=== PATIENT | male | born 1960 | race Caucasian/White ===

== ENCOUNTER 2016-09-24 16:16 | Emergency (ER) | payer BC ==
[2016-09-24 16:21] VITALS: TEMP 98
[2016-09-24] MEDS ORDERED: SODIUM CHLORIDE 0.9% 1,000 ML IV ONE (16:38)
[2016-09-24] MEDS ORDERED: ONDANSETRON 4 MG/2 ML VIAL IVP STA (16:38)
[2016-09-24] MEDS ORDERED: LORazepam 2 MG/ML SYRINGE IV STA (16:38)
--- NOTE | 2016-09-24 16:41 | ED ---
General Adult HPI - General Chief complaint: Nausea/Vomiting/Diarrhea Stated complaint: Alcohol withdraw Time Seen by Provider: 09/24/16 16:28 Source: patient Mode of arrival: ambulatory Limitations: no limitations - History of Present Illness Initial comments: There is a 56-year-old male with a history of alcohol abuse who presents emergency department for nausea, vomiting, and generalized shaking. The patient states that he is a long-time drinker and drinks approximately 1 pint of liquor per day. His last drink was last night around 8 PM he states he wants to quit drinking and is looking entered checking into rehab however he has vomited multiple times today and is very shaky. He feels that he needs help with quitting his drinking. He denies abdominal pain. No history of withdrawal seizures or DTs. He denies any history of hospitalizations. No other complaints. - Related Data Home Medications Medication Instructions Recorded Confirmed Aspirin EC [Ecotrin] 325 mg PO DAILY 09/24/16 09/24/16 amLODIPine BESYLATE/BENAZEPRIL 1 cap PO BID 09/24/16 09/24/16 [amLODIPine BESYLATE/BENAZEPRIL 5-20 mg] Previous Rx's Medication Instructions Recorded Ondansetron Odt [Zofran Odt] 4 mg PO Q8HR PRN #10 tab 09/24/16 chlordiazePOXIDE HCl [Librium] 25 mg PO TID PRN #30 capsule 09/24/16 Allergies Allergy/AdvReac Type Severity Reaction Status Date / Time No Known Allergies Allergy Verified 09/24/16 16:58 Review of Systems ROS Statement: Those systems with pertinent positive or pertinent negative responses have been documented in the HPI. ROS Other: All systems not noted in ROS Statement are negative. Past Medical History Past Medical History: Cancer, Hypertension Additional Past Medical History / Comment(s): Chronic Alcohol Abuse; Skin Ca History of Any Multi-Drug Resistant Organisms: None Reported Additional Past Surgical History / Comment(s): Skin cancer removal from ear Past Psychological History: Depression Smoking Status: Never smoker Past Alcohol Use History: Abuse, Daily Past Drug Use History: None Reported General Exam - General Exam Comments Initial Comments: Constitutional: Awake alert Appears comfortable Head: Normocephalic atraumatic Eyes: no conjunctival injection No scleral icterus EOMI Neck: No JVD Supple Heart: Tachycardia normal S1-S2 no murmurs Lungs: Clear to auscultation bilaterally No wheezing No rales Abdomen: Soft nondistended nontender Extremities: Non edematous DP pulses intact Radial pulses intact Neuro: A&Ox3 No focal neurologic deficits, there is generalized tremors Psych: Appears anxious Limitations: no limitations Course Vital Signs 09/24/16 16:18 Temperature 98.0 F Pulse Rate 96 Respiratory 18 Rate Blood Pressure 162/96 O2 Sat by Pulse 98 Oximetry Medical Decision Making - Medical Decision Making Is a 56-year-old male presents emergency department for a call withdrawal. Labwork was reviewed and unremarkable. The patient feels improved after fluids , Ativan, and Zofran. Going to send him home with Librium and Zofran that he can use as needed. He is to follow-up with the rehab center next week. He can return if he has worsening symptoms. All questions were answered. - Lab Data Result diagrams: 09/24/16 16:50 09/24/16 16:50 Lab Results 09/24/16 09/24/16 09/24/16 Range/Units 16:50 16:50 16:50 WBC 8.0 (3.8-10.6) k/uL RBC 4.77 (4.30-5.90) m/uL Hgb 15.2 (13.0-17.5) gm/dL Hct 45.1 (39.0-53.0) % MCV 94.4 (80.0-100.0) fL MCH 31.8 (25.0-35.0) pg MCHC 33.7 (31.0-37.0) g/dL RDW 13.1 (11.5-15.5) % Plt Count 255 (150-450) k/uL Neutrophils % 79 % Lymphocytes % 13 % Monocytes % 6 % Eosinophils % 1 % Basophils % 0 % Neutrophils # 6.4 (1.3-7.7) k/uL Lymphocytes # 1.0 (1.0-4.8) k/uL Monocytes # 0.5 (0-1.0) k/uL Eosinophils # 0.1 (0-0.7) k/uL Basophils # 0.0 (0-0.2) k/uL PT 10.7 (9.0-12.0) sec INR 1.1 (<1.1) APTT 24.7 (22.0-30.0) sec Sodium 139 (137-145) mmol/L Potassium 3.5 (3.5-5.1) mmol/L Chloride 96 L (98-107) mmol/L Carbon Dioxide 26 (22-30) mmol/L Anion Gap 17 mmol/L BUN 15 (9-20) mg/dL Creatinine 0.80 (0.66-1.25) mg/dL Est GFR (MDRD) Af Amer >60 (>60 ml/min/1.73 sqM) Est GFR (MDRD) Non-Af >60 (>60 ml/min/1.73 sqM) Glucose 112 H (74-99) mg/dL Calcium 9.8 (8.4-10.2) mg/dL Total Bilirubin 2.9 H (0.2-1.3) mg/dL AST 61 H (17-59) U/L ALT 52 (21-72) U/L Alkaline Phosphatase 82 (38-126) U/L Total Protein 8.6 H (6.3-8.2) g/dL Albumin 4.6 (3.5-5.0) g/dL Disposition Clinical Impression: Alcohol withdrawal Disposition: HOME SELF-CARE Instructions: Alcohol Withdrawal (ED) Prescriptions: Ondansetron Odt [Zofran Odt] 4 mg PO Q8HR PRN #10 tab PRN Reason: Vomiting chlordiazePOXIDE HCl [Librium] 25 mg PO TID PRN #30 capsule PRN Reason: Withdrawal Referrals: Chucky Bradley MD [Primary Care Provider] - 1-2 days
[2016-09-24 17:07] LABS: Basophils % (A) 0 %; CH 32.6; CHCM 34.6; Eosinophils # (A) 0.1 k/uL (0-0.7); Eosinophils % (A) 1 %; HCT 45.1 % (39.0-53.0); HDW 2.14; HGB 15.2 gm/dL (13.0-17.5); Luc # (Auto) 0.07; Luc % (Auto) 1; Lymphocytes % (A) 13 %; MCH 31.8 pg (25.0-35.0); MCHC 33.7 g/dL (31.0-37.0); MCV 94.4 fL (80.0-100.0); Mean Platelet Volume 6.9; Monocytes # (A) 0.5 k/uL (0-1.0); Monocytes % (A) 6 %; Neutrophils # (A) 6.4 k/uL (1.3-7.7); Neutrophils % (A) 79 %; RBC 4.77 m/uL (4.30-5.90); RDW 13.1 % (11.5-15.5); WBC (Perox) 7.97
[2016-09-24 17:15] LABS: ALT 52 U/L (21-72); AST 61 U/L (17-59); Alkaline Phosphatase 82 U/L (38-126); Anion Gap 17 mmol/L; Blood Urea Nitrogen 15 mg/dL (9-20); Calcium 9.8 mg/dL (8.4-10.2); Carbon Dioxide 26 mmol/L (22-30); Chloride 96 mmol/L (98-107); Glucose 112 mg/dL (74-99); Non-African American GFR(MDRD) >60 (>60 ml/min/1.73 sqM); Potassium 3.5 mmol/L (3.5-5.1); Sodium 139 mmol/L (137-145); Total Bilirubin 2.9 mg/dL (0.2-1.3); Total Protein 8.6 g/dL (6.3-8.2)
[2016-09-24 17:17] LABS: INR 1.1 (<1.1); Partial Thromboplastin Time 24.7 sec (22.0-30.0); Prothrombin Time 10.7 sec (9.0-12.0)
[2016-09-24 18:24] VITALS: BP 160/97; PULSE 93; RESP 20
== END 2016-09-24 18:29 | disposition home or self-care (01) ==
LOC: EC 16:16
DX: F10.239 Alcohol dependence with withdrawal, unspecified (principal); I10 Essential (primary) hypertension; Z79.82 Long term (current) use of aspirin; Z79.899 Other long term (current) drug therapy
CPT/HCPCS: 36415; 80053; 85025; 85610; 85730; 99284; 96374; 96375; 96361 ×2; J2060; J2405

== ENCOUNTER → 2018-10-19 | Outpatient (CLI) | payer BC ==
--- NOTE | 2018-10-19 13:32 | ECHOS ---
STRESS ECHOCARDIOGRAM DATE OF SERVICE: 10/19/2018 INDICATIONS: Shortness of breath. MEDICATIONS: Amlodipine, aspirin, Vitamin D. BASELINE HEART RATE: 70 BASELINE BLOOD PRESSURE: 109/79 MAXIMUM HEART RATE: 145 MAXIMUM BLOOD PRESSURE: 197/59 85% MPHR: 138 100% MPHR: 162 METS: 7.1 MAXIMUM STAGE REACHED: II TOTAL EXERCISE TIME: 6 minutes CLINICAL INFORMATION: Baseline rhythm is sinus mechanism, rate of 70, normal axis and intervals, normal electrocardiogram. Baseline blood pressure 109/79 mmHg. The patient exercised on Сергей protocol for 6 minutes reaching peak rate 145 beats per minute which is equal to 89% maximum predicted heart rate. Peak blood pressure 197/59 mmHg. Test was terminated secondary to fatigue. There was no chest pain. Electrocardiograph monitoring revealed no evidence of diagnostic ischemic ST deviation. Baseline echocardiogram revealed normal wall thickening and motion. At peak exercise, there was normal wall motion augmentation with no hypokinesis or dyskinesis. CONCLUSION: 1. Decreased exercise tolerance with normal electrocardiograph response to exercise. 2. Normal stress echocardiogram with no evidence of stress induced ischemia. MMODL / IJN: [id number] /
== END | disposition home or self-care (01) ==
LOC: RADNMMAIN 10:17
PROVIDERS: ATTEND Family Medicine
DX: R06.02 Shortness of breath (principal)
CPT/HCPCS: 93351

== ENCOUNTER 2022-07-19 12:18 | Emergency (ER) | payer BC ==
[2022-07-19] MEDS ORDERED: KETOROLAC 15 MG/ML 1 ML VIAL IM STA (12:56)
--- NOTE | 2022-07-19 13:01 | ED ---
General Adult HPI - General Chief complaint: Extremity Injury, Upper Stated complaint: lt hand injury Time Seen by Provider: 07/19/22 12:44 Source: patient, RN notes reviewed, old records reviewed Mode of arrival: ambulatory Limitations: no limitations - History of Present Illness Initial comments: Patient is a 62-year-old male with past medical history remarkable for prior alcohol abuse and withdrawal sober for 5 years, hypertension, who presents emergency Department complaining of left arm pain. Patient states that at 1 AM last night, he was attempting to break a car window to help someone get out of the car. He for struck it with his left forearm on the outside aspect and he states it began to hurt there. Did not hit it again but was able to break the window open with an object. States that he went home with this morning when he woke up he was having some pain at the site of the distal left forearm and difficulty moving his wrist. Presents today for further evaluation over concern for injury. No new laceration. No other injuries. Denies any sensory deficits or weakness in the hand. Reduced range of motion at the left wrist secondary to pain. No left elbow or shoulder pain. Presents for further evaluation at this time. - Related Data Home Medications Medication Instructions Recorded Confirmed Aspirin EC [Ecotrin] 325 mg PO DAILY 09/24/16 09/24/16 amLODIPine BESYLATE/BENAZEPRIL 1 cap PO BID 09/24/16 09/24/16 [amLODIPine BESYLATE/BENAZEPRIL 5-20 mg] Previous Rx's Medication Instructions Recorded Ondansetron Odt [Zofran Odt] 4 mg PO Q8HR PRN #10 tab 09/24/16 chlordiazePOXIDE HCl [Librium] 25 mg PO TID PRN #30 capsule 09/24/16 Allergies Allergy/AdvReac Type Severity Reaction Status Date / Time No Known Allergies Allergy Verified 07/19/22 12:41 Review of Systems ROS Statement: Those systems with pertinent positive or pertinent negative responses have been documented in the HPI. Review of Systems: CONST: Denies fever EYES: Denies blurry vision ENT: Denies nasal congestion C/V: Denies Chest pain RESP: Denies shortness of breath GI: Denies abdominal pain : Denies dysuria SKIN: Denies rash. MSK: Endorses left arm, wrist pain. NEURO: Denies headache ROS Other: All systems not noted in ROS Statement are negative. Past Medical History Past Medical History: Cancer, Hypertension Additional Past Medical History / Comment(s): Chronic Alcohol Abuse; Skin Ca History of Any Multi-Drug Resistant Organisms: None Reported Additional Past Surgical History / Comment(s): Skin cancer removal from ear Past Psychological History: Depression Smoking Status: Never smoker Past Alcohol Use History: Abuse, Daily Past Drug Use History: None Reported General Exam - General Exam Comments Initial Comments: General: Appears in no acute distress. HEAD: Normal with no signs of head trauma. EYES: EOMI ENT: Hearing grossly intact RESPIRATORY: No respiratory distress C/V: Peripheral pulses 2+ and intact throughout. Good capillary refill in the fingertips of the left hand. ABD: Nondistended EXT: Normal range of motion of the left shoulder, left elbow, left fingers. Reduced range of motion of the left wrist. Tenderness to palpation over the medial aspect of the distal left forearm, primarily over the distal ulna and at the wrist. There is swelling located at the site but no obvious deformity. Patient is able to contact thumb to fingertips without difficulty. No neurosensory deficits. SKIN: A healed scab located over the left forearm. No acute laceration or abrasion. No evidence for open fracture. NEURO: Alert and oriented 4. No focal deficits. Limitations: no limitations Course Vital Signs 07/19/22 12:39 Temperature 98.2 F Pulse Rate 104 H Respiratory 20 Rate Blood Pressure 159/101 O2 Sat by Pulse 96 Oximetry Procedures - Orthopedic Splinting/Casting Injury #1 Side: left Upper Extremity Injury Location: short arm Upper Extremity Immobilizer: sugar tong splint Additional Comments: Neurovascularly intact following the procedure. Cap refill <2 seconds, No motor/sensory deficits distal to the splint in the left fingers. Medical Decision Making - Medical Decision Making Based on the patient's presentation and physical exam, I'm concerned for injury to the patient's distal left forearm, wrist. We will obtain x-rays. He will be given Toradol for analgesia. Vital signs within acceptable limits. Patient is no other injuries. He is up-to-date on tetanus. No evidence for open fracture. He was in agreement with this plan. Patient's x-rays were remarkable for showing a minimally displaced left ulnar fracture in the distal midshaft. When I went to reevaluate the patient and update him on the findings, patient had eloped from the emergency department. He left his room and mentioned to ER staff that he will be returning soon. I did attempt to contact him at his phone number at [phone] multiple times and I was pushed a voicemail each time. His voice mailbox was full. I called an additional time, and by that time patient had returned into the emergency department. States he had a drop his daughter off at home and immediately returned. I updated him on the findings of his imaging. He expressed understanding. He will be splinted with a sugar tong splint and given a sling, and instructed follow-up with podiatrist orthopedic. He was in agreement with the plan. Patient tolerated splinting well. He has intact peripheral pulses, capillary refill in the left upper distal extremity sensory deficits. I instructed the patient to follow up with their PCP in the next 1-3 days. I explained that the patient should return to the emergency department if they experience any worsening symptoms. Strict return precautions were discussed with the patient. The patient expressed understanding of these instructions. I answered all questions that the patient had. The patient was discharged home in good condition with their prescriptions and follow up information. Disposition Clinical Impression: Left ulnar fracture Disposition: HOME SELF-CARE Condition: Good Instructions (If sedation given, give patient instructions): Arm Fracture in Adults (ED) Is patient prescribed a controlled substance at d/c from ED?: No Referrals: Chucky Bradley MD [Primary Care Provider] - 1-2 days Aman Kelsey MD [Medical Doctor] - 1-2 days Time of Disposition: 15:00
--- NOTE | 2022-07-19 13:54 | XR ---
EXAMINATION TYPE: XR hand complete LT, XR wrist complete LT, XR forearm LT DATE OF EXAM: 07/19/2022 1:24 PM INDICATION: Patient age:Male; 62 years old; Reason for study: pain, concern for injury left distal forearm; COMPARISON: None TECHNIQUE: Frontal, lateral and oblique views of the left hand and wrist were obtained. Frontal and l ateral views of the left forearm. FINDINGS: A fracture through the distal ulna with mild to millimeter displacement. Mild soft tissue s welling is present. Degeneration changes of the joints in the wrist most pronounced involving the sca phoid and trapezium. IMPRESSION: Acute fracture of the distal left ulna without displacement.
[2022-07-19 16:31] VITALS: BP 137/88; PULSE 89; RESP 18; TEMP 97.6
== END 2022-07-19 16:34 | disposition home or self-care (01) ==
LOC: EC 12:18
DX: S52.602A Unspecified fracture of lower end of left ulna, initial encounter for closed fracture (principal); I10 Essential (primary) hypertension; F32.A Depression, unspecified; Z79.82 Long term (current) use of aspirin; Z79.899 Other long term (current) drug therapy; W22.8XXA Striking against or struck by other objects, initial encounter
CPT/HCPCS: 73090; 73110; 73130; 99283; 96372; 29125; J1885

== ENCOUNTER → 2023-06-26 | Outpatient (CLI) | payer BC ==
[2023-06-26 16:03] LABS: ALT 43 U/L (10-49); AST 29 U/L (14-35); Albumin 4.6 g/dL (3.8-4.9); Alkaline Phosphatase 69 U/L (41-126); BUN/Creat Ratio 15.36 Ratio (12.00-20.00); Blood Urea Nitrogen 16.9 mg/dL (9.0-27.0); Calcium 9.9 mg/dL (8.7-10.3); Carbon Dioxide 26.1 mmol/L (21.6-31.8); Chloride 103 mmol/L (96-109); Chol/HDL Ratio 4.42 Ratio; Globulin 2.7 g/dL (1.6-3.3); Glucose 85 mg/dL (70-110); LDL Cholesterol,Calculated 119.6 mg/dL (0.0-131.0); Potassium 4.4 mmol/L (3.5-5.5); Sodium 140 mmol/L (135-145); Total Bilirubin 0.7 mg/dL (0.3-1.2); Total Protein 7.3 g/dL (6.2-8.2)
== END | disposition home or self-care (01) ==
LOC: LABWHC1 07:09
PROVIDERS: ATTEND Student in an Organized Health Care Education/Training Program
DX: E78.5 Hyperlipidemia, unspecified (principal); I10 Essential (primary) hypertension; E11.9 Type 2 diabetes mellitus without complications
CPT/HCPCS: 36415; 80053; 80061; 83036

== ENCOUNTER 2025-01-12 16:26 | Emergency (ER) | payer BC ==
[2025-01-12] MEDS: SODIUM CHLORIDE 0.9% 1,000 ML IV ONE (17:30)
--- NOTE | 2025-01-12 17:39 | ED ---
General Adult HPI - General Chief complaint: Upper Respiratory Infection Stated complaint: Bodyaches/Fever Time Seen by Provider: 01/12/25 16:44 Source: patient Mode of arrival: ambulatory Limitations: no limitations - History of Present Illness Initial comments: 64-year-old male presenting with chief complaint of fever. Patient reports that he has been having intermittent fevers for a few weeks. 4 weeks ago he went on a trip to [place] and came back feeling sick with a cough and congestion. He reports that while he still having a minor cough this has improved significantly. However he still has intermittent episodes of fever and chills. He states that he is having bodyaches and a headache and feels generally fatigued. He is normally quite active and feels very tired after doing small tasks. No chest pain or difficulty breathing. No nausea, vomiting, abdominal pain, diarrhea. No urinary symptoms. No dizziness. - Related Data Home Medications Medication Instructions Recorded Confirmed Aspirin EC [Ecotrin] 325 mg PO DAILY 09/24/16 09/24/16 amLODIPine BESYLATE/BENAZEPRIL 1 cap PO BID 09/24/16 09/24/16 [amLODIPine BESYLATE/BENAZEPRIL 5-20 mg] Previous Rx's Medication Instructions Recorded Ondansetron Odt [Zofran Odt] 4 mg PO Q8HR PRN #10 tab 09/24/16 chlordiazePOXIDE HCl [Librium] 25 mg PO TID PRN #30 capsule 09/24/16 Allergies Allergy/AdvReac Type Severity Reaction Status Date / Time No Known Allergies Allergy Verified 07/19/22 12:41 Review of Systems ROS Statement: Those systems with pertinent positive or pertinent negative responses have been documented in the HPI. ROS Other: All systems not noted in ROS Statement are negative. Past Medical History Past Medical History: Cancer, Hypertension Additional Past Medical History / Comment(s): Chronic Alcohol Abuse; Skin Ca History of Any Multi-Drug Resistant Organisms: None Reported Additional Past Surgical History / Comment(s): Skin cancer removal from ear Past Psychological History: Depression Smoking Status: Never smoker Past Alcohol Use History: Abuse, Daily Past Drug Use History: None Reported General Exam Limitations: no limitations General appearance: alert, in no apparent distress Head exam: Present: atraumatic, normocephalic, normal inspection Eye exam: Present: normal appearance, EOMI. Absent: periorbital swelling Neck exam: Present: normal inspection. Absent: meningismus Respiratory exam: Present: normal lung sounds bilaterally. Absent: respiratory distress, wheezes, rales, rhonchi, stridor Cardiovascular Exam: Present: regular rate, normal rhythm, normal heart sounds. Absent: systolic murmur, diastolic murmur, rubs, gallop, clicks GI/Abdominal exam: Present: soft. Absent: distended, tenderness, guarding, rebound, rigid Neurological exam: Present: alert, oriented X3 Psychiatric exam: Present: normal affect, normal mood Skin exam: Present: warm, dry, normal color Course Vital Signs 01/12/25 01/12/25 16:35 19:22 Temperature 99.7 F H 98.4 F Pulse Rate 100 66 Respiratory 20 18 Rate Blood Pressure 115/81 117/74 O2 Sat by Pulse 94 L 95 Oximetry Medical Decision Making - Medical Decision Making Was pt. sent in by a medical professional or institution (, PA, MENTAL HEALTH PROGRAM MANAGER, urgent care, hospital, or fpc...) When possible be specific @ -No Did you speak to anyone other than the patient for history (EMS, parent, family, police, friend...)? What history was obtained from this source @ -Patient significant other Did you review nursing and triage notes (agree or disagree)? Why? @ -I reviewed and agree with nursing and triage notes Were old charts reviewed (outside hosp., previous admission, EMS record, old EKG, old radiological studies, urgent care reports/EKG's, fpc records)? Report findings @ -No old charts were reviewed Differential Diagnosis (chest pain, altered mental status, abdominal pain women, abdominal pain men, vaginal bleeding, weakness, fever, dyspnea, syncope, headache, dizziness, GI bleed, back pain, seizure, CVA, palpatations, mental health, musculoskeletal)? @ - MDM Differential Fever: Pneumonia, viral URI, endocarditis, myocarditis, pericarditis, otitis, sinusi tis, peritonsillar Abscess, retropharyngeal Abscess, epiglottitis, peritonitis, appendicitis, Sera cystitis, diverticulitis, hepatitis, colitis, UTI, PID, TOA, pyelonephritis, prostatitis, epididymitis, meningitis, encephalitis, pulmonary embolism, CVA, thyroid storm, pancreatitis, adrenal crisis, cavernous sinus thrombosis… this is not meant to be an all-inclusive list. EKG interpreted by me (3pts min.). @ -As above X-rays interpreted by me (1pt min.). @ -Chest x-ray shows no acute cardiopulmonary disease/process CT interpreted by me (1pt min.). @ -None done U/S interpreted by me (1pt. min.). @ -None done What testing was considered but not performed or refused? (CT, X-rays, U/S, l abs)? Why? @ -None What meds were considered but not given or refused? Why? @ -None Did you discuss the management of the patient with other professionals (professionals i.e. DrCindy, PA, MENTAL HEALTH PROGRAM MANAGER, lab, RT, psych nurse, social service agency director, nurse outreach case manager, teacher, electronic warfare officer, case management director)? Give summary @ -No Was smoking cessation discussed for >3mins.? @ -No Was critical care preformed (if so, how long)? @ -No Were there social determinants of health that impacted care today? How? (Homelessness, low income, unemployed, alcoholism, drug addiction, transportation, low edu. Level, literacy, decrease access to med. care, fdc, rehab)? @ -No Was there de-escalation of care discussed even if they declined (Discuss DNR or withdrawal of care, Hospice)? DNR status @ -No What co-morbidities impacted this encounter? (DM, HTN, Smoking, COPD, CAD, Cancer, CVA, ARF, Chemo, Hep., AIDS, mental health diagnosis, sleep apnea, morbid obesity)? @ -None Was patient admitted / discharged? Hospital course, mention meds given and route, prescriptions, significant lab abnormalities, going to OR and other pertinent info. @ -64-year-old male presenting with chief complaint of intermittent fever body aches and fatigue. History and physical examination are conducted. Lab work shows no leukocytosis or anemia. BUN 26, patient is receiving IV fluids. Urine is negative for infection. He is negative for influenza, RSV, COVID, group A strep. Chest x-ray shows no acute process. On reassessment the patient is rest ing in the chair showing no acute signs of distress. Patient is afebrile and vital signs are stable. He is educated on today's findings and supportive management at home. Symptoms may be due to viral stacking. He is encouraged to follow-up with his PCP. Follow-up with PCP. Report back to ER with any new or worsening symptoms. Discussed return parameters and answered all questions. Patient conveyed verbal understanding and agreed to the plan. I discussed this case in detail with my attending Dr. Phelps Undiagnosed new problem with uncertain prognosis? @ -No Drug Therapy requiring intensive monitoring for toxicity (Heparin, Nitro, Insulin, Cardizem)? @ -No Were any procedures done? @ -No Diagnosis/symptom? @ -Fatigue Acute, or Chronic, or Acute on Chronic? @ -Acute Uncomplicated (without systemic symptoms) or Complicated (systemic symptoms)? @ -Uncomplicated Side effects of treatment? @ -No Exacerbation, Progression, or Severe Exacerbation? @ -No Poses a threat to life or bodily function? How? (Chest pain, [place], [place], pneumonia, PE, COPD, DKA, ARF, appy, cholecystitis, CVA, Diverticulitis, Homicidal, Suicidal, threat to staff... and all critical care pts) @ -Unlikely - Lab Data Result diagrams: 01/12/25 17:33 01/12/25 17:33 Lab Results 01/12/25 01/12/25 01/12/25 Range/Units 17:33 17:33 17:33 WBC 8.31 (4.50-10.00) 10*3/uL RBC 5.25 (4.40-5.60) 10*6/uL Hgb 15.0 (13.0-17.0) g/dL Hct 44.1 (39.6-50.0) % MCV 84.0 (80.0-97.0) fL MCH 28.6 (27.0-32.0) pg MCHC 34.0 (32.0-37.0) g/dL Plt Count 245 (140-440) 10*3/uL MPV 8.9 L (9.5-12.2) fL Immature Gran % (Auto) 0.4 % Neutrophils % 64.7 % Lymphocytes % 16.8 % Monocytes % 17.0 % Eosinophils % 0.4 % Basophils % 0.7 % Immature Gran # 0.03 (0.00-0.04) 10*3/uL Neutrophils # 5.38 (1.80-7.70) 10*3/uL Lymphocytes # 1.40 (0.90-5.00) 10*3/uL Monocytes # 1.41 H (0.20-1.00) 10*3/uL Eosinophils # 0.03 L (0.04-0.35) 10*3/uL Basophils # 0.06 (0.00-0.10) 10*3/uL Sodium 134 L (137-145) mmol/L Potassium 3.7 (3.5-5.1) mmol/L Chloride 101 (98-107) mmol/L Carbon Dioxide 20 L (22-30) mmol/L Anion Gap 13 mmol/L BUN 26 H (9-20) mg/dL Creatinine 1.14 (0.66-1.25) mg/dL Est GFR (CKD-EPI)AfAm 79 (>60 ml/min/1.73 sqM) Est GFR (CKD-EPI)NonAf 68 (>60 ml/min/1.73 sqM) Glucose 102 H (74-99) mg/dL Plasma Lactic Acid Geremias (0.7-2.0) mmol/L Calcium 9.2 (8.4-10.2) mg/dL Magnesium 2.0 (1.6-2.3) mg/dL Total Bilirubin 0.8 (0.2-1.3) mg/dL AST 22 (17-59) U/L ALT 24 (4-49) U/L Alkaline Phosphatase 76 (38-126) U/L Total Protein 7.5 (6.3-8.2) g/dL Albumin 4.1 (3.5-5.0) g/dL Urine Color Yellow Urine Appearance Clear (Clear) Urine pH 5.5 (5.0-8.0) Ur Specific [place] 1.008 (1.001-1.035) Urine Protein Negative (Negative) Urine Glucose (UA) Negative (Negative) Urine Ketones Negative (Negative) Urine Blood Negative (Negative) Urine Nitrite Negative (Negative) Urine Bilirubin Negative (Negative) Urine Urobilinogen <2.0 (<2.0) mg/dL Ur Leukocyte Esterase Negative (Negative) Influenza Type A (PCR) (Not Detectd) Influenza Type B (PCR) (Not Detectd) RSV (PCR) (Not Detectd) SARS-CoV-2 (PCR) (Not Detectd) Group A Strep (PCR) (Not Detectd) 01/12/25 01/12/25 01/12/25 Range/Units 17:33 17:33 17:33 WBC (4.50-10.00) 10*3/uL RBC (4.40-5.60) 10*6/uL Hgb (13.0-17.0) g/dL Hct (39.6-50.0) % MCV (80.0-97.0) fL MCH (27.0-32.0) pg MCHC (32.0-37.0) g/dL Plt Count (140-440) 10*3/uL MPV (9.5-12.2) fL Immature Gran % (Auto) % Neutrophils % % Lymphocytes % % Monocytes % % Eosinophils % % Basophils % % Immature Gran # (0.00-0.04) 10*3/uL Neutrophils # (1.80-7.70) 10*3/uL Lymphocytes # (0.90-5.00) 10*3/uL Monocytes # (0.20-1.00) 10*3/uL Eosinophils # (0.04-0.35) 10*3/uL Basophils # (0.00-0.10) 10*3/uL Sodium (137-145) mmol/L Potassium (3.5-5.1) mmol/L Chloride (98-107) mmol/L Carbon Dioxide (22-30) mmol/L Anion Gap mmol/L BUN (9-20) mg/dL Creatinine (0.66-1.25) mg/dL Est GFR (CKD-EPI)AfAm (>60 ml/min/1.73 sqM) Est GFR (CKD-EPI)NonAf (>60 ml/min/1.73 sqM) Glucose (74-99) mg/dL Plasma Lactic Acid Geremias 0.8 (0.7-2.0) mmol/L Calcium (8.4-10.2) mg/dL Magnesium (1.6-2.3) mg/dL Total Bilirubin (0.2-1.3) mg/dL AST (17-59) U/L ALT (4-49) U/L Alkaline Phosphatase (38-126) U/L Total Protein (6.3-8.2) g/dL Albumin (3.5-5.0) g/dL Urine Color Urine Appearance (Clear) Urine pH (5.0-8.0) Ur Specific [place] (1.001-1.035) Urine Protein (Negative) Urine Glucose (UA) (Negative) Urine Ketones (Negative) Urine Blood (Negative) Urine Nitrite (Negative) Urine Bilirubin (Negative) Urine Urobilinogen (<2.0) mg/dL Ur Leukocyte Esterase (Negative) Influenza Type A (PCR) Not Detected (Not Detectd) Influenza Type B (PCR) Not Detected (Not Detectd) RSV (PCR) Not Detected (Not Detectd) SARS-CoV-2 (PCR) Not Detected (Not Detectd) Group A Strep (PCR) NOT DETECTED (Not Detectd) Disposition Clinical Impression: Fatigue Disposition: HOME SELF-CARE Condition: Good Instructions (If sedation given, give patient instructions): Fatigue (ED) Additional Instructions: Follow-up with your PCP. Report back to ER with any new or worsening symptoms. Is patient prescribed a controlled substance at d/c from ED?: No Referrals: Chucky Bradley MD [Primary Care Provider] - 1-2 days Time of Disposition: 19:13
--- NOTE | 2025-01-12 17:43 | XR ---
EXAMINATION TYPE: XR chest 2V DATE OF EXAM: 01/12/2025 5:39 PM COMPARISON: None TECHNIQUE: XR chest 2V Frontal and lateral views of the chest. CLINICAL INDICATION:Male, 64 years old with history of fever; FINDINGS: Lungs/Pleura: There is no evidence of pleural effusion, focal consolidation, or pneumothorax. Eventr ation of the right hemidiaphragm. Pulmonary vascularity: Unremarkable. Heart/mediastinum: Cardiomediastinal silhouette is unremarkable. Musculoskeletal: No acute osseous pathology. IMPRESSION: No acute cardiopulmonary disease/process. [facility], , 01/12/2025 5:41 PM
[2025-01-12 17:45] LABS: Basophils # (A) 0.06 10*3/uL (0.00-0.10); Basophils % (A) 0.7 %; Eosinophils # (A) 0.03 10*3/uL (0.04-0.35); Eosinophils % (A) 0.4 %; HCT 44.1 % (39.6-50.0); Lymphocytes % (A) 16.8 %; MCH 28.6 pg (27.0-32.0); Mean Platelet Volume 8.9 fL (9.5-12.2); Monocytes # (A) 1.41 10*3/uL (0.20-1.00); Neutrophils # (A) 5.38 10*3/uL (1.80-7.70); Neutrophils % (A) 64.7 %; Platelet Count 245 10*3/uL (140-440); RBC 5.25 10*6/uL (4.40-5.60); RDW 14.6 % (11.5-14.5); WBC 8.31 10*3/uL (4.50-10.00)
[2025-01-12 17:56] LABS: ALT 24 U/L (4-49); AST 22 U/L (17-59); African American GFR (CKD) 79 (>60 ml/min/1.73 sqM); Albumin 4.1 g/dL (3.5-5.0); Alkaline Phosphatase 76 U/L (38-126); Anion Gap 13 mmol/L; Blood Urea Nitrogen 26 mg/dL (9-20); Calcium 9.2 mg/dL (8.4-10.2); Carbon Dioxide 20 mmol/L (22-30); Chloride 101 mmol/L (98-107); Glucose 102 mg/dL (74-99); Non-African American GFR(CKD) 68 (>60 ml/min/1.73 sqM); Potassium 3.7 mmol/L (3.5-5.1); Sodium 134 mmol/L (137-145); Total Bilirubin 0.8 mg/dL (0.2-1.3); Total Protein 7.5 g/dL (6.3-8.2)
[2025-01-12 18:22] LABS: Influenza A Not Detected (Not Detectd); Influenza B Not Detected (Not Detectd); RSV Not Detected (Not Detectd)
[2025-01-12 18:51] LABS: Appearance,Urine Clear (Clear); Bilirubin,Urine Negative (Negative); Blood,Urine Negative (Negative); Color,Urine Yellow; Glucose,Urine (UA) Negative (Negative); Ketones,Urine Negative (Negative); Leukocyte Esterase,Urine Negative (Negative); Nitrite,Urine Negative (Negative); PH, Urine 5.5 (5.0-8.0); Protein,Urine Negative (Negative); Specific Gravity,Urine 1.008 (1.001-1.035); Urobilinogen,Urine <2.0 mg/dL (<2.0)
[2025-01-12 19:23] VITALS: BP 117/74; PULSE 66; RESP 18; TEMP 98.4
== END 2025-01-12 19:23 | disposition home or self-care (01) ==
LOC: EC 16:26
DX: R53.83 Other fatigue (principal)
CPT/HCPCS: 36415; 71046; 80053; 81003; 83605; 83735; 85025; 87636; 87651; 96360; 99283